=== PATIENT | male | born 1985 | race Caucasian/White ===

== ENCOUNTER 2024-09-05 20:20 | Emergency (ER) | payer OTHER ==
[2024-09-05 20:38] VITALS: BP 136/82; PULSE 85; RESP 18; TEMP 98.2; BMI 30.8
[2024-09-05] MEDS ORDERED: AMOX TR/POT CLAV 875MG/125MG TABLETS (FP) ONE (21:16)
[2024-09-05] MEDS: AMOX TR/POT CLAV 875MG/125MG TABLETS (FP) PO ONE (21:22)
[2024-09-05] MEDS ORDERED: DIPHTH,PERTUSS(ACELL),TET 0.5 ML DISP.SYRIN IM ONE (21:32)
[2024-09-05] MEDS: DIPHTH,PERTUSS(ACELL),TET 0.5 ML DISP.SYRIN IM ONE (21:35)
== END 2024-09-05 21:50 | disposition home or self-care (01) ==
LOC: FER 20:20
PROC: 3E0234Z Introduction of Serum, Toxoid and Vaccine into Muscle, Percutaneous Approach (ICD-10-PCS; principal; 2024-09-05)
DX: S60.551A Superficial foreign body of right hand, initial encounter (principal); Z23 Encounter for immunization; W19.XXXA Unspecified fall, initial encounter
CPT/HCPCS: 73130-TC-RT-FY; 90715; 99284-25